=== PATIENT | female | born 1965 | race Caucasian/White ===

== ENCOUNTER 2020-12-28 00:02 | Observation (INO) | payer BC ==
[~2020-12-28] VITALS: Ht 160 cm; Wt 125.6 kg
[2020-12-28 01:19] LABS: HEMOGLOBIN 14.9 gm/dl (12.3-15.3); RED BLOOD COUNT 4.42 M/UL (4.00-5.10); WHITE BLOOD COUNT 9.4 K/UL (4.5-11.0)
[2020-12-28 02:07] LABS: BUN/CREATININE RATIO 18 (0-10)
[2020-12-28] MEDS ORDERED: BETAMETHASONE D50 G1 TOP (10:13)
[2020-12-28] MEDS ORDERED: FOLIC ACID 1 MG1 MG PO (10:14)
[2020-12-28] MEDS ORDERED: METHOTREXATE T2.5 MG PO (10:15)
[2020-12-28] MEDS ORDERED: VITAMIN D21250 MCG PO ×2 (10:16→11:50)
[2020-12-28] MEDS ORDERED: LOSARTAN POTAS100 MG PO (10:17)
[2020-12-28] MEDS ORDERED: LEVOTHYROXINE100 MCG PO (10:17)
[2020-12-28] MEDS ORDERED: HYDROCHLOROTH12.5 MG PO (10:17)
[2020-12-28] MEDS ORDERED: BETAMETHASONE D50 G1 TP (11:49)
[2020-12-28 22:53] LABS: BUN/CREATININE RATIO 18 (0-10)
[2020-12-29 03:14] LABS: HEMOGLOBIN 15.8 gm/dl (12.3-15.3); RED BLOOD COUNT 4.76 M/UL (4.00-5.10); WHITE BLOOD COUNT 10.2 K/UL (4.5-11.0)
[2020-12-29 03:37] LABS: BUN/CREATININE RATIO 17 (0-10)
[2020-12-29] MEDS ORDERED: HYDRALAZINE HCL25 MG PO (11:04)
[2020-12-29] MEDS ORDERED: MECLIZINE HCL25 MG PO (11:04)
[2020-12-29] MEDS ORDERED: LIPITOR40 MG PO (15:04)
[2020-12-29] MEDS ORDERED: ASPIRIN EC81 MG PO (15:04)
== END 2020-12-29 16:09 | disposition home or self-care (01) ==
LOC: ER1 00:02 → M/S 05:00 → CDU 05:00 → M/S 12:15
PROVIDERS: Emergency Medicine; Internal Medicine; ADMIT Internal Medicine
DX: R42 Dizziness and giddiness (principal); I47.2 Ventricular tachycardia; I49.5 Sick sinus syndrome; R53.1 Weakness; G47.33 Obstructive sleep apnea (adult) (pediatric); I11.9 Hypertensive heart disease without heart failure; I08.3 Combined rheumatic disorders of mitral, aortic and tricuspid valves; I27.20 Pulmonary hypertension, unspecified; L94.0 Localized scleroderma [morphea]; E03.9 Hypothyroidism, unspecified; Z79.01 Long term (current) use of anticoagulants; Z79.899 Other long term (current) drug therapy; Z20.822 Contact with and (suspected) exposure to COVID-19; Z88.1 Allergy status to other antibiotic agents; Z90.710 Acquired absence of both cervix and uterus; Z85.42 Personal history of malignant neoplasm of other parts of uterus
CPT/HCPCS: ECHO; 36415; 70450; 70551; 71045; 80048; 80053; 80061; 80307; 81001; 82550; 82553; 82607; 82746; 83036; 83735; 83874; 84100; 84439; 84443; 84484; 85025; 85027; 93005; 93306; 93880; 96372; 99285; G0378; J1650; J8610; U0002

== ENCOUNTER → 2021-01-01 | Outpatient (CLI) | payer BC ==
[~2021-01-01] MED LIST: ASPIRIN EC81 MG PO; BETAMETHASONE D50 G1 TOP; BETAMETHASONE D50 G1 TP; FOLIC ACID 1 MG1 MG PO; HYDRALAZINE HCL25 MG PO; HYDROCHLOROTH12.5 MG PO; LEVOTHYROXINE100 MCG PO; LIPITOR40 MG PO; LOSARTAN POTAS100 MG PO; MECLIZINE HCL25 MG PO; METHOTREXATE T2.5 MG PO; VITAMIN D21250 MCG PO
== END ==
LOC: HEART 5 14:48
DX: R42 Dizziness and giddiness (principal); G47.33 Obstructive sleep apnea (adult) (pediatric); E66.9 Obesity, unspecified; I49.5 Sick sinus syndrome; I47.2 Ventricular tachycardia

== ENCOUNTER → 2021-08-03 | Outpatient (CLI) | payer BC ==
[2021-08-04 08:15] LABS: CHOLESTEROL, TOTAL 193 mg/dL (100-199); HDL CHOLESTEROL 66 mg/dL (>39); LDL CHOLESTEROL CALC 108 mg/dL (0-99); LDL/HDL RATIO 1.6 ratio (0.0-3.2); T. CHOL/HDL RATIO 2.9 ratio (0.0-4.4); TRIGLYCERIDES 110 mg/dL (0-149)
[2021-08-04 11:15] LABS: A/G RATIO 1.9 (1.2-2.2); ALKALINE PHOSPHATASE, S 126 IU/L (44-121); ALT (SGPT) 21 IU/L (0-32); AST (SGOT) 20 IU/L (0-40); BILIRUBIN, TOTAL 0.7 mg/dL (0.0-1.2); BUN 19 mg/dL (6-24); BUN/CREATININE RATIO 25 (9-23); CALCIUM, SERUM 9.4 mg/dL (8.7-10.2); CARBON DIOXIDE, TOTAL 20 mmol/L (20-29); CHLORIDE, SERUM 107 mmol/L (96-106); CREATININE, SERUM 0.77 mg/dL (0.57-1.00); EGFR IF AFRICN AM 100 (>59); EGFR IF NONAFRICN AM 87 (>59); GLOBULIN, TOTAL 2.2 g/dL (1.5-4.5); GLUCOSE, SERUM 88 mg/dL (65-99); POTASSIUM, SERUM 4.3 mmol/L (3.5-5.2); PROTEIN, TOTAL, SERUM 6.4 g/dL (6.0-8.5); SODIUM, SERUM 144 mmol/L (134-144)
== END ==
LOC: LAB 09:21
PROVIDERS: Internal Medicine Cardiovascular Disease
DX: I10 Essential (primary) hypertension (principal); I47.2 Ventricular tachycardia; R06.02 Shortness of breath; I49.5 Sick sinus syndrome; E03.9 Hypothyroidism, unspecified
CPT/HCPCS: 36415; 80053; 80061; 84439; 84443; 84481